=== PATIENT | female | born 1955 | race Caucasian/White ===

== ENCOUNTER 2016-08-03 13:20 | Inpatient (IN) | payer MEDICAID ==
--- NOTE | 2016-08-03 13:42 | CPEKG ---
Heart Rate: 72 RR Interval: 833 P-R Interval: 168 QRSD Interval: 86 QT Interval: 376 QTC Interval: 412 P [place]: 16 QRS [place]: 13 T Wave [place]: 32 EKG Severity - NORMAL ECG - EKG Impression: SINUS RHYTHM Electronically Signed By: Wilma Tilley 03-Aug-2016 15:22:39
[2016-08-03 13:57] LABS: % IMMATURE GRANULYOCYTES 0.4 % (0.0-1.1); ABSOLUTE IMMATURE GRANULOCYTES 0.05 10^3/uL (0.00-0.10); ADD DIFF? NO; ADD MORPH? NO; ADD SCAN? NO; ATYPICAL LYMPHOCYTE FLAG 0 (0-99); FRAGMENT RBC FLAG 0 (0-99); HEMATOCRIT 36.4 % (38.0-47.0); HEMOGLOBIN 11.7 g/dL (12.6-16.3); LEFT SHIFT FLG 0 (0-99); LIPEMIA HEMOLYSIS FLAG 80 (0-99); MEAN CELL HEMOGLOBIN CONCENTR. 32.1 g/dL (32.4-36.7); MEAN CELL VOLUME 74.7 fL (81.5-99.8); MEAN PLATELET VOLUME 8.8 fL (8.7-11.7); PLATELET CLUMPS FLAG 10 (0-99); PLATELET COUNT 284 10^3/uL (150-400); RED BLOOD CELL COUNT 4.87 10^6/uL (4.18-5.33); RED CELL DISTRIBUTION WIDTH 15.1 % (11.5-15.2)
--- NOTE | 2016-08-03 14:06 | EDPHY ---
H & P Time Seen by Provider: 08/03/16 13:32 HPI/ROS: CHIEF COMPLAINT: Possible aneurysm in lung HISTORY OF PRESENT ILLNESS: Patient is a 52-year-old female who presents to the emergency department complaining of left lateral rib pain. Patient has a recent history of colon cancer. She had a resection of the tumor on 2016. At that time they found that she also had cancer in her ovaries. She had a total abdominal hysterectomy and oophorectomy as well. Tumor has spread to her lymph nodes per report. Patient states since Thursday she developed left lateral rib pain. Extends under her armpit and breast. It does not radiate. It is improved when she stands. She denies shortness of breath. She has not felt as though she had a fever at home but does report having a fever here. She has had no cough. No nausea or vomiting. No abdominal pain. Her incisions from surgery healing well. No dysuria or frequency. Patient called her cancer physician knee told her to come to the emergency department for further evaluation of possible "aneurysm in lung." REVIEW OF SYSTEMS: My complete review of systems is negative except as mentioned in the HPI. Past Medical/Surgical History: Includes colon cancer, ovarian cancer, anxiety Past surgical history: Includes colon cancer resection, total abdominal hysterectomy, oophorectomy Social history: The patient does not smoke Smoking Status: Never smoked Physical Exam: Vitals noted. 30.3, 133/71, 82, 22, 94% on room air GENERAL: Well-appearing, in no acute distress, alert. HEENT: Eyes normal to inspection, normal pharynx, no signs of dehydration. NECK: No thyromegaly, no lymphadenopathy, supple. RESPIRATORY: Clear to auscultation bilaterally, no rales, rhonchi or wheezing. CVS: Regular rate and rhythm, no rubs, murmurs, or gallops. Chest: The patient has left lateral chest wall tenderness palpation under her left breast. This is over the ribs. There is no palpable mass. No rash or lesions. ABDOMEN: Soft, nontender, nondistended, no organomegaly. Patient has a large midline surgical incision that is healing well. No erythema. BACK: Normal to inspection, no CVA tenderness. SKIN: Normal color, no rash, warm, dry. No pallor. EXTREMITIES: No pedal edema, no calf tenderness, no Homans sign or cords, no joint swelling. NEURO/PSYCH: Alert and oriented x3, normal mood and affect, normal motor sensory exam. Constitutional: Initial Vital Signs Temperature (C) 38.3 C 08/03/16 13:24 Heart Rate 82 08/03/16 13:24 Respiratory Rate 22 H 08/03/16 13:24 Blood Pressure 133/71 H 08/03/16 13:24 O2 Sat (%) 94 08/03/16 13:24 Allergies/Adverse Reactions: magnesium citrate Allergy (Verified 08/03/16 13:22) Home Medications: Medication Instructions Recorded Aspirin 81mg (*) 08/03/16 Atenolol 08/03/16 Flexeril 08/03/16 Metoprolol Tartrate 08/03/16 Xanax 08/03/16 traMADol 08/03/16 traZODone 08/03/16 Medical Decision Making - Diagnostics EKG Interpretation: EKG shows normal sinus rhythm, normal rate, normal axis, normal intervals. There are no ST or T-wave abnormalities. EKG is normal as interpreted by me. ED Course/Re-evaluation: In the emergency department I discussed possible etiologies with the patient. I answered her questions. I discussion regarding her report of possible aneurysm in lung. I discussed that this could potentially have said "embolism of lung". She states that that is actually what the doctor said. Laboratory studies, EKG and CT angio chest were ordered. I discussed this with the patient answered her questions Differential Diagnosis: My differential includes but is not limited to PE, bronchitis, pneumonia, empyema, metastatic disease, zoster, musculoskeletal strain, diaphragmatic irritation - Data Points Laboratory Results: Laboratory Results 08/03/16 13:52 08/03/16 08/03/16 13:52 13:52 WBC 12.52 10^3/uL H 10^3/uL (3.80-9.50) RBC 4.87 10^6/uL 10^6/uL (4.18-5.33) Hgb 11.7 g/dL L g/dL (12.6-16.3) Hct 36.4 % L % (38.0-47.0) MCV 74.7 fL L fL (81.5-99.8) MCH 24.0 pg L pg (27.9-34.1) MCHC 32.1 g/dL L g/dL (32.4-36.7) RDW 15.1 % % (11.5-15.2) Plt Count 284 10^3/uL 10^3/uL (150-400) MPV 8.8 fL fL (8.7-11.7) Neut % (Auto) 78.6 % H % (39.3-74.2) Lymph % (Auto) 13.2 % L % (15.0-45.0) [place] % (Auto) 6.1 % % (4.5-13.0) Eos % (Auto) 1.4 % % (0.6-7.6) Baso % (Auto) 0.3 % % (0.3-1.7) Nucleat RBC Rel Count 0.0 % % (0.0-0.2) Absolute Neuts (auto) 9.84 10^3/uL H 10^3/uL (1.70-6.50) Absolute Lymphs (auto) 1.65 10^3/uL 10^3/uL (1.00-3.00) Absolute Monos (auto) 0.76 10^3/uL 10^3/uL (0.30-0.80) Absolute Eos (auto) 0.18 10^3/uL 10^3/uL (0.03-0.40) Absolute Basos (auto) 0.04 10^3/uL 10^3/uL (0.02-0.10) Absolute Nucleated RBC 0.00 10^3/uL 10^3/uL (0-0.01) Immature Gran % 0.4 % % (0.0-1.1) Immature Gran # 0.05 10^3/uL 10^3/uL (0.00-0.10) Sodium Pending Potassium Pending Chloride Pending Carbon Dioxide Pending Anion Gap Pending BUN Pending Creatinine Pending Estimated GFR Pending Glucose Pending Calcium Pending Departure - Departure Condition: Good Referrals: NONE *PRIMARY CARE P,. [Primary Care Provider] - As per Instructions
[2016-08-03] MEDS ORDERED: NS 500 ML IV ONE (14:08)
[2016-08-03 14:17] LABS: INR 1.15 (0.83-1.16); PROTIME(PATIENT) 14.6 SEC (12.0-15.0)
[2016-08-03 14:18] LABS: APTT 30.2 SEC (23.0-38.0)
[2016-08-03 14:23] LABS: ALANINE AMINOTRANSFERASE 23 IU/L (9-52); ALBUMIN 3.6 g/dL (3.5-5.0); ALKALINE PHOSPHATASE 82 IU/L (38-126); ANION GAP 11 mEq/L (8-16); ASPARTATE AMINOTRANSFERASE 12 IU/L (14-46); BILIRUBIN,TOTAL 0.7 mg/dL (0.1-1.4); BILIRUBIN-CONJUGATED 0.3 mg/dL (0.0-0.5); BILIRUBIN-UNCONJUGATED 0.4 mg/dL (0.0-1.1); CALCIUM 9.4 mg/dL (8.5-10.4); CARBON DIOXIDE 23 mEq/l (22-31); CHLORIDE 107 mEq/L (97-110); CREATININE 0.8 mg/dL (0.6-1.0); GLOMERULAR FILTRATION RATE > 60; GLUCOSE 123 mg/dL (70-100); POTASSIUM 4.3 mEq/L (3.5-5.2); SODIUM 141 mEq/L (134-144); TOTAL PROTEIN 6.3 g/dL (6.3-8.2)
[2016-08-03] MEDS ORDERED: IOPAMIDOL (ISOVUE 370) 100 ML BTL IV ONE (14:26)
[2016-08-03 14:35] LABS: TROPONIN I < 0.012 ng/mL (0-0.034)
[2016-08-03] MEDS ORDERED: ENOXAPARIN 100 MG/ML SYR SC ONE (15:10)
[2016-08-03] MEDS ORDERED: HYDROmorphONE/DILAUDID 1 MG/ML SYR IVP ONE (15:27)
[2016-08-03] MEDS ORDERED: HYDROmorphONE/DILAUDID 2 MG/ML INJ IVP ONE (15:43)
[2016-08-03] MEDS ORDERED: HYDROmorphONE/DILAUDID 1 MG/ML SYR ONE (15:44)
[2016-08-03] MEDS ORDERED: LORazepam 0.5 MG TAB PO PRN (15:59)
[2016-08-03] MEDS ORDERED: ONDANSETRON 4 MG/2 ML VIAL IVP PRN (15:59)
[2016-08-03] MEDS ORDERED: HYDROmorphONE/DILAUDID 1 MG/ML SYR IVP PRN (15:59)
[2016-08-03] MEDS ORDERED: traMADol 50 MG TAB PO PRN (16:31)
[2016-08-03] MEDS ORDERED: ONDANSETRON DISINTEGRATING 4 MG TAB PO PRN (16:45)
--- NOTE | 2016-08-03 16:57 | GHP ---
[f rep st] HISTORY AND PHYSICAL DATE OF ADMISSION: 08/03/2016 CHIEF COMPLAINT: Pleuritic chest pain. HISTORY: The patient is a 60-year-old female, recently diagnosed with colon cancer. She underwent resection at [facility] July 01. Cancer was extensive and involved her ovaries, so she also requi red a hysterectomy and oophorectomy. She had positive lymph nodes. She has been labeled stage IV. She has not yet initiated chemotherapy. She is still recovering from surgery. Her oncologist is Maynor Lowe. She presents to the emergency room now with severe pleuritic chest pain. This started 3 days ago, b ut, as of this morning, became very severe, 15/10 severity. She is clutching the left side of her c hest and in severe pain throughout history and physical. This pain is sharp with shortness of breat h. It is left lateral lower chest, pleuritic. It gets better when she stands up. The patient did not have a colonoscopy at age 52 because she was working a lot, and just did get talon und to it. PAST MEDICAL HISTORY: 1. Colon cancer, status post resection at [facility] July 01. 2. Atrial fibrillation postoperatively. 3. Benign pulmonary nodule, status post biopsy at [facility]. PAST SURGICAL HISTORY: Cholecystectomy. MEDICATIONS: Please see computerized record for full detailed list. ALLERGIES: Mag citrate. SOCIAL HISTORY: No smoking. She drank alcohol only in college. 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 She lives with her . REVIEW OF SYSTEMS: Complete review of system obtained. Review of system is negative regarding cons titutional, HEENT, GI, pulmonary, cardiovascular, , hematology, musculoskeletal, musculoskeletal, endocrine, psych, except for positives and negatives as in HPI. FAMILY HISTORY: Her father did have colon cancer, although at an older age. Aunt with breast cance r. PHYSICAL EXAMINATION: GENERAL: Well-developed, well-nourished female in no acute distress. VITAL SIGNS: Temperature 38.3, pulse 77, blood pressure 122/77, saturating 98% on room air. EYES: Jazzy l conjunctivae. Pupils round, react to light. ENT: Normal ears and nose. Hearing intact. Normal teeth. Oropharynx moist. NECK: Trachea midline. No thyromegaly. CHEST: Normal respiratory eff ort. Lungs clear to auscultation bilaterally. CARDIOVASCULAR SYSTEM: Regular rhythm. No murmur. No lower extremity edema. ABDOMEN: Soft, nontender. No hepatosplenomegaly. Her surgical incisio n looks well healed. SKIN: Warm, dry, intact. No rash. MUSCULOSKELETAL: No cyanosis or clubbing . Strength 5/5 upper and lower extremities. NEUROLOGIC: Cranial nerves intact. Normal sensation to light touch. PSYCHIATRIC: Alert and oriented x3. Normal affect. Normal judgment. Normal nahomi ry. She is little anxious. LABORATORY DATA: White count 12.52, hematocrit 36.4, platelets 284. Sodium 141, potassium 4.3, chl oride 107, bicarbonate 23, BUN 11, creatinine 0.8, glucose 123. LFTs are negative. Troponins negat david. D-dimer is 2.57. EKG reviewed by me, and my personal interpretation is normal sinus rhythm. No ST or T-wave changes. CT angio of the chest shows bilateral pulmonary embolus, left greater than right, a left upper lobe nodule, and bilateral thyroid nodules. ASSESSMENT AND PLAN: 1. Acute pulmonary embolus. She does have significant bilateral clot burden. She also has severe pleuritic chest pain. She may have an element of pulmonary infarct. We will continue subcutaneous Lovenox. We will discuss with Oncology their desired long-term anticoagulation strategy with her. IV Dilaudid for pain control. 2. Colon cancer, status post resection, locally advanced, stage IV. Chemotherapy pending. Oncolog y is notified of admission. 3. Atrial fibrillation. Clarify home med reconciliation. Continue her beta blockers. 4. Thyroid nodules. This should follow as an outpatient. 5. Fever. I suspect she has an element of pulmonary infarct causing the fever. We will check cult ures. CODE STATUS: Full. ADMISSION STATUS: 1. We will admit to inpatient, as her clot burden is extensive, and she is very symptomatic, so ant icipate greater than 2 midnights required for stabilization. 2. DVT prophylaxis. Full anticoagulation as discussed above. /[id number]/MODL
[2016-08-03] MEDS: HYDROmorphONE/DILAUDID 4 MG TAB PO PRN ×2 (17:06→21:30)
[2016-08-03 17:55] LABS: COLOR YELLOW; LEUKOCYTE ESTERASE,URINE NEGATIVE (NEGATIVE); NITRITE,URINE NEGATIVE (NEGATIVE)
[2016-08-03] MEDS: ATENOLOL 50 MG TAB PO SCH (21:29)
[2016-08-03] MEDS: METOPROLOL TARTRATE 25 MG TAB PO SCH (21:30)
[2016-08-03] MEDS: traZODone 100 MG TAB PO PRN (21:30)
[2016-08-03] MEDS: ALPRAZolam 1 MG TAB PO PRN (21:30)
[2016-08-03] MEDS: ENOXAPARIN 100 MG/ML SYR SC SCH (21:31)
[2016-08-03] MEDS: CYCLOBENZAPRINE 10 MG TAB PO PRN (21:31)
[2016-08-04] MEDS: HYDROmorphONE/DILAUDID 4 MG TAB PO PRN ×3 (03:31→12:38)
[2016-08-04 07:30] LABS: % IMMATURE GRANULYOCYTES 0.3 % (0.0-1.1); ABSOLUTE IMMATURE GRANULOCYTES 0.03 10^3/uL (0.00-0.10); ADD DIFF? NO; ADD MORPH? NO; ADD SCAN? NO; ATYPICAL LYMPHOCYTE FLAG 0 (0-99); FRAGMENT RBC FLAG 0 (0-99); HEMATOCRIT 33.9 % (38.0-47.0); HEMOGLOBIN 10.4 g/dL (12.6-16.3); LEFT SHIFT FLG 0 (0-99); LIPEMIA HEMOLYSIS FLAG 80 (0-99); MEAN CELL HEMOGLOBIN CONCENTR. 30.7 g/dL (32.4-36.7); MEAN CELL VOLUME 78.3 fL (81.5-99.8); PLATELET CLUMPS FLAG 20 (0-99); PLATELET COUNT 198 10^3/uL (150-400); RED BLOOD CELL COUNT 4.33 10^6/uL (4.18-5.33); RED CELL DISTRIBUTION WIDTH 15.2 % (11.5-15.2)
[2016-08-04] MEDS: METOPROLOL TARTRATE 25 MG TAB PO SCH ×2 (07:41→21:33)
[2016-08-04] MEDS: ENOXAPARIN 100 MG/ML SYR SC SCH ×2 (07:42→21:33)
[2016-08-04 07:47] LABS: ANION GAP 5 mEq/L (8-16); CALCIUM 8.6 mg/dL (8.5-10.4); CARBON DIOXIDE 27 mEq/l (22-31); CHLORIDE 103 mEq/L (97-110); CREATININE 0.7 mg/dL (0.6-1.0); GLOMERULAR FILTRATION RATE > 60; GLUCOSE 130 mg/dL (70-100); POTASSIUM 4.7 mEq/L (3.5-5.2); SODIUM 135 mEq/L (134-144)
[2016-08-04] MEDS ORDERED: ASPIRIN 81 MG CHEWABLE TAB PO SCH (09:00)
--- NOTE | 2016-08-04 09:39 | GCON ---
[f rep st] CONSULTATION ONCOLOGY CONSULTATION DATE OF CONSULTATION: 08/04/2016 REFERRING PHYSICIAN: Alisha Grewal MD REASON FOR CONSULTATION: Pulmonary embolism in the setting of colon cancer. HISTORY OF PRESENT ILLNESS: The patient is a 60-year-old woman with a recent diagnosis of metastati c rectosigmoid colon cancer. She is well known to me from my clinic. Briefly, she presented in lat e February 2016. A PET scan showed a number of FDG avid areas in the colon, including the mid trans verse colon and the sigmoid colon. There was also a left upper lobe lung nodule measuring 1.6 cm wh ich was hypermetabolic. A colonoscopy on May 28 revealed obstructing mass at the rectosigmoid junc tion at 14 cm. A biopsy showed an adenocarcinoma. She had a bronchoscopic biopsy of the lung lesio n which was normal. She underwent surgery on July 01. The cecum was resected based on the PET fin dings and had 4 adenomas measuring up to 2.5 cm but no cancer and no positive nodes. The sigmoid co ntained a 5.2 cm high-grade adenocarcinoma with 4 out of 19 nodes and an extramural tumor deposit. The ovaries appeared grossly abnormal and also were removed and these both contained metastatic canc er as well. I saw her last week in clinic when she was feeling tired due to iron deficiency anemia and her recen t surgery but otherwise well. Over the weekend she developed some severe left-sided pleuritic chest pain and came to the emergency department for medical attention. A CT angiogram revealed bilateral thromboembolic disease, greater on the left than the right. The previously noted FDG avid left upp er lobe lung nodule was stable in size. She was hemodynamically stable. She was started on Lovenox . She continues to have significant pain but notes that the Dilaudid is helping this. PAST MEDICAL HISTORY: 1. Hypertension. 2. Anxiety. CURRENT MEDICATIONS: Xanax, atenolol, Flexeril, Lovenox 100 mg subcutaneously b.i.d., Dilaudid p.o. and IV, Lopressor. ALLERGIES: She has no known drug allergies. FAMILY HISTORY: Noncontributory. SOCIAL HISTORY: She is nonsmoker, nondrinker. 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 She is mar ried. Lives with her . REVIEW OF SYSTEMS: Pertinent positives noted in the HPI. A 14-point review of systems is negative. EXAMINATION: VITAL SIGNS: Her temperature was 38.3, blood pressure 120/67, heart rate 76, oxygen s aturation 98% on 2 L. GENERAL: She was in no acute distress. Her sclerae were anicteric. Orophar ynx was clear. NECK: Supple without lymphadenopathy. LUNGS: Clear to auscultation bilaterally. CARDIAC: Regular rate and rhythm. No murmurs, gallops, rubs. ABDOMEN: Normoactive bowel sounds. Nontender. Nondistended. EXTREMITIES: No edema. 2+ pulses. NEUROLOGIC: She was alert and orien mitchell x3. LABORATORY DATA: White count 8.74, hemoglobin 10.4 with MCV of 78, platelets of 198. Chemistry mathis el was unremarkable. IMPRESSION: This is a 60-year-old woman with recently resected colon cancer with metastasis to the ovaries. She now presents with a pulmonary embolism. She almost certainly has at least microscopic residual cancer in the left upper lung nodule. This possibly metastasis, though it has not grown i n the past month or so. She is currently anticoagulated with Lovenox. I think Xarelto would be the easiest to manage in the outpatient setting and should be covered by Medicaid. Coumadin would also be a reasonable alternat david. She will need anticoagulation for at least 6 months, though if she has evidence of active canc er at that time it should be continued beyond that point. I will give her some intravenous iron for her iron deficiency which is planned for clinic this week. I have discussed with her the role of chemotherapy in trying to treat the cancer and possibly preven t the gross metastatic recurrence. She was initially quite resistant to the idea but is more amenab le to it right now. I would not plan to start for another few weeks so it is not an active issue in this particular hospitalization. I will continue to follow the patient with you closely while she is in the hospital. /[id number]/MODL
[2016-08-04] MEDS: SODIUM FERRIC GLUCONAT/SUCROSE 125 MG in NS 100 ML IV SCH (09:58)
--- NOTE | 2016-08-04 11:11 | HOSPPROG ---
Hospitalist Progress Note Assessment/Plan: 60 y/o female new to my care with history with stage IV colon cancer s/p resection presenting with #Acute PE -Cont LMWH as ordered -onc consult note reviewed -plan to transition to Xarelto if covered by medicaid #Low grade fever likely due to pulm infarction in the setting of PE -blood cultures pending -wbc normal -continue to monitor off of antibiotics #Afib (rate controlled) -cont home meds + anticoagulation as recently started #stable Thyroid nodules seen on CT -Will check a TSH and recommend outpatient followup and US #Iron Deficiency anemia -IV iron ordered by Hematology dispo: continue inpatient care Subjective: continues to have severe right sided pluritic chest pain. no shortness of breath. resolved fever. Denies obvious bleeding Objective: Vital Signs Temp Pulse Resp BP Pulse Ox 38.3 C 76 22 H 128/67 H 98 08/04/16 07:29 08/04/16 07:29 08/04/16 07:29 08/04/16 07:29 08/04/16 07:29 Laboratory Results 08/04/16 07:08 08/04/16 07:08 08/03/16 08/04/16 08/05/16 05:59 05:59 05:59 Intake Total 600 360 Output Total 200 Balance 400 360 PT 14.6 SEC (12.0-15.0) 08/03/16 13:52 INR 1.15 (0.83-1.16) 08/03/16 13:52 - Physical Exam Constitutional: no apparent distress, appears nourished, not in pain Cardiovascular: regular rate and rhythym, no murmur, rub, or gallop Respiratory: no respiratory distress, no rales or rhonchi, clear to auscultation Gastrointestinal: normoactive bowel sounds, soft, non-tender abdomen, no palpable masses, No guarding, No rebound Genitourinary: no bladder fullness, no bladder tenderness, no renal bruits Skin: no rashes or abrasions, no fluctuance, no induration Neurologic: AAOx3, CN II-XII Intact, No facial droop ICD10 Worksheet Patient Problems: Problems Problem Status Onset Pulmonary embolism Acute
[2016-08-04] MEDS: ACETAMINOPHEN 325 MG TAB PO PRN (15:34)
[2016-08-04] MEDS: traZODone 100 MG TAB PO PRN (21:32)
[2016-08-04] MEDS: ATENOLOL 50 MG TAB PO SCH (21:32)
[2016-08-04] MEDS: ALPRAZolam 1 MG TAB PO PRN (21:33)
[2016-08-04] MEDS: CYCLOBENZAPRINE 10 MG TAB PO PRN (21:33)
[2016-08-05 07:24] VITALS: BP 136/59; PULSE 79; RESP 16; O2SAT 93
[2016-08-05] MEDS: ACETAMINOPHEN 325 MG TAB PO PRN (07:25)
[2016-08-05] MEDS: ENOXAPARIN 100 MG/ML SYR SC SCH (07:30)
[2016-08-05] MEDS: METOPROLOL TARTRATE 25 MG TAB PO SCH (07:30)
[2016-08-05] MEDS: SODIUM FERRIC GLUCONAT/SUCROSE 125 MG in NS 100 ML IV SCH (07:31)
[2016-08-05 08:43] VITALS: TEMP 99.5
--- NOTE | 2016-08-05 09:09 | PDDCSUM ---
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
== END 2016-08-05 10:57 | disposition home or self-care (01) | DRG 176 ==
LOC: OBSVTOIN 15:57 → F2W 16:27
PROVIDERS: ADMIT Internal Medicine; ATTEND Internal Medicine
DX: I26.99 Other pulmonary embolism without acute cor pulmonale (principal); I48.91 Unspecified atrial fibrillation; I10 Essential (primary) hypertension; D50.9 Iron deficiency anemia, unspecified; C18.9 Malignant neoplasm of colon, unspecified; C79.60 Secondary malignant neoplasm of unspecified ovary; C77.9 Secondary and unspecified malignant neoplasm of lymph node, unspecified; R91.1 Solitary pulmonary nodule; Z98.890 Other specified postprocedural states
CPT/HCPCS: 96374; 97161-GP; J1170; J1650; J2916; Q9967

== ENCOUNTER 2016-09-18 11:00 | Day surgery (SDC) | payer MEDICAID ==
--- NOTE | 2016-09-18 08:39 | GHP ---
[f rep st] HISTORY AND PHYSICAL DATE OF ADMISSION: 09/18/2016 CHIEF COMPLAINT: Colon cancer. HISTORY OF PRESENT ILLNESS: The patient is a 60-year-old with sigmoid colon cancer who presents to discuss port placement. She underwent colon resection on July 01, 2016, and had metastatic disease to lymph nodes, left lung, and both ovaries. She developed a PE postoperatively and was started on Xarelto. She is discontinuing Xarelto and transferring to warfarin. She is planning to start chemotherapy next week. PAST MEDICAL HISTORY: Atrial fibrillation, hypertension, colon cancer, pulmonary embolism. PAST SURGICAL HISTORY: Breast biopsy, laparoscopic cholecystectomy. MEDICATIONS: Atenolol, metoprolol, Xanax, Xarelto (on hold). ALLERGIES: Ibuprofen, magnesium salicylate. FAMILY HISTORY: No pertinent for past medical history. SOCIAL HISTORY: No tobacco use. REVIEW OF SYSTEMS: Significant for recent weight loss, night sweats, atrial fibrillation, high blood pressure, heart burn, constipation, anxiety. Otherwise , 10-point review of systems negative. PHYSICAL EXAMINATION: GENERAL: Pleasant, well-nourished, well-groomed woman in no acute distress. HEENT: Normocephalic. No gross hearing deficits. Mucous membranes moist. Pupils equal and round. No scleral icterus. LUNGS: Clear to auscultation bilaterally. No increased work of breathing. CARDIAC: Irregular. No peripheral edema. SKIN: Warm and dry. MUSCULOSKELETAL: Normal gait. Normal nails. PSYCH: Mood and affect normal. NEURO: Grossly intact. IMPRESSION AND PLAN: 60-year-old with metastatic sigmoid colon cancer. We will place a port. The risks and benefits, including, but not limited to, stroke, heart attack, , blood clots, infection, bleeding, pneumothorax were discussed. If the port becomes infected it would need to be removed. She understands she is at high risk of bleeding due to transitioning to warfarin. She will be off Xarelto for 2 days prior to surgery. /[id number]/MODL MTDD
[~2016-09-18 11:00] MED LIST: BUPIVACAINE 0.5% 30 ML SDV ONE; ceFAZolin 2 GM/DEXTROSE 100 ML IV ONE
[2016-09-18] MEDS ORDERED: ceFAZolin 2 GM/DEXTROSE 100 ML IV ONE (11:48)
[2016-09-18] MEDS ORDERED: LR 1,000 ML IV ONE (11:50)
--- NOTE | 2016-09-18 11:56 | PDHPUP ---
History & Physical Update H&P update statement: This history and physical update is based on an assessment of the patient which was completed after admission or registration (within 24 hours), but prior to the surgery/procedure. H&P update: H&P reviewed & patient examined H&P changes: stopped xarelto 2 days ago
[2016-09-18] MEDS ORDERED: PROPOFOL/EMULSION 500 MG/50 ML BOTTLE IV ONE (13:06)
[2016-09-18] MEDS ORDERED: MIDAZOLAM 2 MG/2 ML VIAL ONE (13:07)
[2016-09-18] MEDS ORDERED: fentaNYL 100 MCG/2 ML INJ ONE (13:07)
[2016-09-18] MEDS ORDERED: KETAMINE 100 MG/10 ML SYR ONE (13:08)
[2016-09-18] MEDS ORDERED: ACETAMINOPHEN 500 MG TAB PO PRN (13:20)
[2016-09-18] MEDS ORDERED: PROMETHAZINE HCL 25 MG/ML INJ IVP PRN (13:20)
[2016-09-18] MEDS ORDERED: NALOXONE HCL 0.4 MG/ML INJ IVP PRN (13:20)
[2016-09-18] MEDS ORDERED: ONDANSETRON 4 MG/2 ML VIAL IVP PRN (13:20)
[2016-09-18] MEDS ORDERED: LR 500 ML IV PRN (13:20)
[2016-09-18] MEDS ORDERED: fentaNYL 100 MCG/2 ML INJ IVP PRN (13:20)
--- NOTE | 2016-09-18 13:20 | PDANEPAE ---
ANE History of Present Illness 60 year old female with colon cancer. She has well controlled blood pressure, took metoprolol this AM. She is obese, no AAKASH. 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 She is otherwise healthy. ANE Past Medical History - Cardiovascular History Hx Hypertension: Yes Hx Arrhythmias: Yes Hx Chest Pain: No Hx Coronary Artery / Peripheral Vascular Disease: No Hx CHF / Valvular Disease: No Hx Palpitations: No Cardiovascular History Comment: A fib- on Xarelto. - Pulmonary History Hx COPD: No Hx Asthma/Reactive Airway Disease: No Hx Recent Upper Respiratory Infection: No Hx Oxygen in Use at Home: No Hx Sleep Apnea: No Sleep Apnea Screening Result - Last Documented: Negative Pulmonary History Comment: PE bilat lungs 07-21-16 No SOB. "spasm of bronchial tubes" - uses 1/2 tsp Nyquil. 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 [place] . R breast lumpectomy 1996 ANE Review of Systems - Exercise capacity METS (RN): 4 METS ANE Patient History - Allergies Allergies/Adverse Reactions: magnesium citrate Allergy (Verified 09/17/16 17:08) Vomiting - Home Medications Home Medications: ALPRAZolam [Xanax 1 MG (*)] 1 - 2 mg PO HS PRN 08/03/16 [Last Taken 09/17/16 22: 00] Atenolol [Tenormin 50 mg (*)] 50 mg PO HS 08/03/16 [Last Taken 09/17/16 21:00] Cyclobenzaprine [Flexeril 10 MG (*)] 10 mg PO HS PRN 08/03/16 [Last Taken 22:00] Metoprolol Tartrate [Lopressor 25 mg (*)] 25 mg PO BID 08/03/16 [Last Taken 08:00] traZODone [traZODONE 100MG (*)] 100 - 200 mg PO HS PRN 08/03/16 [Last Taken 21:00] - NPO status NPO Since - Liquids (Date): 09/18/16 NPO Since - Liquids (Time): 08:00 NPO Since - Solids (Date): 09/17/16 NPO Since - Solids (Time): 17:00 - Smoking Hx Smoking Status: Never smoked ANE Labs/Vital Signs - Vital Signs Blood Pressure: 117/69 Heart Rate: 64 Respiratory Rate: 15 O2 Sat (%): 95 Height: 170.18 cm Weight: 97.522 kg ANE Physical Exam - Airway Neck exam: FROM Mallampati Score: Class 1 Mouth exam: normal dental/mouth exam - Pulmonary Pulmonary: no respiratory distress - Cardiovascular Cardiovascular: regular rate and rhythym - ASA Status ASA Status: II ANE Anesthesia Plan Anesthesia Plan: MAC Urgent/Emergent Case: Jazzy alvarez completed preop but documented later for safe timely pt care
[2016-09-18] MEDS ORDERED: PROPOFOL 200 MG/20 ML VIAL ONE (14:08)
--- NOTE | 2016-09-18 14:24 | POSTOPPROG ---
Post Op Note Date of Operation: 09/18/16 Surgeon: Tamar Hernandez Anesthesiologist: becky Anesthesia: IV Sedation Pre-op Diagnosis: colon cancer Post-op Diagnosis: colon cancer Indication: 60 yo with colon cancer Procedure: R US guided IJ port Findings: left side would not go down SVC. Inf/Abcess present in the surg proc area at time of surgery?: No EBL: Minimal Specimen(s): none
[2016-09-18 15:14] VITALS: PULSE 73; RESP 16; TEMP 98.1
[2016-09-18 15:37] VITALS: BP 121/70; O2SAT 92
--- NOTE | 2016-09-18 17:10 | GOP ---
[f rep st] OPERATIVE REPORT DATE OF OPERATION: 09/18/2016 SURGEON: Tamar Hernandez MD ANESTHESIA: Monitored anesthesia care with IV general. ANESTHESIOLOGIST: Cori Atkins MD PREOPERATIVE DIAGNOSIS: Metastatic colon cancer. POSTOPERATIVE DIAGNOSIS: Metastatic colon cancer. PROCEDURE PERFORMED: Right ultrasound-guided internal jugular port. FINDINGS: I initially tried a left sided approach and despite multiple attempts and a glidewire, I could not get the wire to drop down into the SVC. SPECIMENS: None. ESTIMATED BLOOD LOSS: 20 cc. INDICATIONS: The patient is a 60-year-old woman with colon cancer. She will require a port for chemotherapy. DESCRIPTION OF PROCEDURE: The patient was brought into the operating room, placed supine on the table, and IV sedation was performed. Her bilateral neck and chest were prepped and draped in the usual sterile fashion. I infiltrated all sites with 0.5% Marcaine prior to inserting the needle. I used ultrasound to access the internal jugular vein on the left side. I accessed this easily with a large-bore needle. I threaded the guidewire. There was some resistance on fluoroscopy. It was buckling back on the innominate. I attempted several maneuvers to drop this into the SVC. I re-accessed the vein and again had difficulty getting the wire to drop into the SVC. I re-accessed the left internal jugular vein for the 3rd time and I even used a Glidewire and could not get the Glidewire to drop down into the SVC. I then moved over to the right neck. I accessed the internal jugular vein on the first attempt. I used the wire and it readily went into the SVC and into the IVC. I removed the needle. A pocket was made on the right chest to accommodate the port. The port was tunneled up to the insertion site. The catheter was measured under fluoroscopy and cut to size. Using the Seldinger technique, I placed the dilator and sheath over the wire and I removed the wire and the dilator. I threaded the catheter through the sheath and peeled away the sheath. Placement was confirmed with fluoroscopy. The tip appeared to be at the SVC junction. The port withdrew blood easily and was flushed with heparin. The pocket was closed with 3-0 Vicryl followed by 4-0 Monocryl. Dermabond applied to the incisions. She was awakened in the operating room, transferred to PACU in stable condition. /[id number]/MODL MTDD
== END 2016-09-18 15:52 | disposition home or self-care (01) ==
LOC: FSGY 11:00
PROVIDERS: ATTEND Surgery
PROC: 05HM33Z Insertion of Infusion Device into Right Internal Jugular Vein, Percutaneous Approach (ICD-10-PCS; principal; 2016-09-18 13:00)
DX: C18.7 Malignant neoplasm of sigmoid colon (principal)
CPT/HCPCS: 36561; 71010; 76001; C1769; C1788; J0690; J1642; J2250; J2704; J3010

== ENCOUNTER → 2017-03-24 | Outpatient (CLI) | payer MEDICAID | LOC: FIMAGING 11:29 | PROVIDERS: ATTEND Physician Assistant | DX: J98.11 Atelectasis (principal) ==

== ENCOUNTER → 2017-08-31 | Outpatient (CLI) | payer MEDICAID | LOC: FIMAGING 09:52 | PROVIDERS: ATTEND Internal Medicine Hematology & Oncology | DX: E04.2 Nontoxic multinodular goiter (principal) ==

== ENCOUNTER → 2017-12-26 | Outpatient (CLI) | payer MEDICAID | LOC: FIMAGING 13:25 | PROVIDERS: ATTEND Internal Medicine Hematology & Oncology | DX: Z12.31 Encounter for screening mammogram for malignant neoplasm of breast (principal) ==

== ENCOUNTER 2018-07-16 12:14 | Day surgery (SDC) | payer MEDICAID ==
[2018-07-16] MEDS ORDERED: ceFAZolin 2 GM/DEXTROSE 100 ML IV ONE (12:52)
[2018-07-16] MEDS ORDERED: LR 1,000 ML IV ONE (12:52)
[2018-07-16] MEDS ORDERED: MIDAZOLAM 2 MG/2 ML VIAL IVP ONE ×2 (13:10→16:52)
--- NOTE | 2018-07-16 13:10 | PDANEPAE ---
ANE History of Present Illness 62 yo for port ANE Past Medical History - Cardiovascular History Hx Hypertension: Yes Hx Arrhythmias: Yes Hx Chest Pain: No Hx Coronary Artery / Peripheral Vascular Disease: No Hx CHF / Valvular Disease: No Hx Palpitations: No Cardiovascular History Comment: PERICARDIAL CYST - Pulmonary History Hx COPD: No Hx Asthma/Reactive Airway Disease: No Hx Recent Upper Respiratory Infection: No Hx Oxygen in Use at Home: No Hx Sleep Apnea: No Sleep Apnea Screening Result - Last Documented: Negative Pulmonary History Comment: PE bilat lungs 07-21-16 - Neurologic History Hx Cerebrovascular Accident: No Hx Seizures: No Hx Dementia: No - Endocrine History Hx Diabetes: No - Renal History Hx Renal Disorders: No - Liver History Hx Hepatic Disorders: No - Neurological & Psychiatric Hx Hx Neurological and Psychiatric Disorders: Yes Neurological / Psychiatric History Comment: anxiety - Cancer History Hx Cancer: Yes Cancer History Comment: colon-lymph nodes - Congenital Disorder History Hx Congenital Disorders: No - GI History Hx Gastrointestinal Disorders: Yes Gastrointestinal History Comment: colon CA TREATED WITH CHEMO WHICH ENDED APPROX 04/2017 NOW WITH RECURRENCE - Other Health History Other Health History: INTERMITTENT NECK LYMPH NODE SWELLING. BRUISES EASILY - Chronic Pain History Chronic Pain: Yes (LOWER ABD) - Surgical History Prior Surgeries: PORT PLACEMENT 08/2016. colon resection 07/01/16. TOTAL hysterectomy 07-01-16. Lap [place] . R breast lumpectomy 1996 ANE Review of Systems Review of Systems: - Exercise capacity METS (RN): 4 METS ANE Patient History - Allergies Allergies/Adverse Reactions: magnesium citrate Allergy (Verified 09/17/16 17:08) Vomiting - Home Medications Home medications: home medication list seen and reviewed Home Medications: ALPRAZolam [Xanax 1 MG (*)] 1 - 2 mg PO HS PRN 08/03/16 [Last Taken 09/17/16 22: 00] Atenolol [Tenormin 50 mg (*)] 50 mg PO BID 08/03/16 [Last Taken 09/17/16 21:00] Cyclobenzaprine [Flexeril 10 MG (*)] 10 mg PO HS PRN 08/03/16 [Last Taken 22:00] traZODone [traZODONE 100MG (*)] 100 - 200 mg PO HS PRN 08/03/16 [Last Taken 21:00] Herbals/Supplements -Info Only DAILY 07/15/18 [Last Taken 07/14/18 08:00] - NPO status NPO Status: no food or drink >8 hours - Smoking Hx Smoking Status: Never smoked ANE Labs/Vital Signs - Vital Signs Height: 5 ft 7 in Weight: 98.883 kg ANE Physical Exam - Airway Neck exam: FROM Mallampati Score: Class 2 Mouth exam: normal dental/mouth exam - Pulmonary Pulmonary: no respiratory distress - Cardiovascular Cardiovascular: regular rate and rhythym - ASA Status ASA Status: II ANE Anesthesia Plan Anesthesia Plan: MAC
[2018-07-16] MEDS ORDERED: BUPIVACAINE 0.5% 30 ML SDV ONE (13:43)
--- NOTE | 2018-07-16 13:57 | PDHPUP ---
History & Physical Update H&P update statement: This history and physical update is based on an assessment of the patient which was completed after admission or registration (within 24 hours), but prior to the surgery/procedure. H&P update: H&P reviewed & patient examined, changes noted H&P changes: Patient feeling much better - thinks she ate bad hamburger
--- NOTE | 2018-07-16 14:28 | SOAPPROG ---
JOSE CRUZ Progress Note Assessment/Plan: Assessment: Saw in pre-op - patient very upset about IV stick in Right Arm "I will never come back" Concerned that there is bleeding in her muscle and swelling Very painful Reports had to take out IV Concerned about rash on Left arm where tourniquet was placed I do not appreciate a major swelling of the arm 1) Ice for comfort 2) Ultrasound to rule out bleeding 3) Patient rep She did have a successful IV placed by Dr. Peraza Plan: 07/16/18 14:26 Objective: Vital Signs Temp Pulse Resp BP Pulse Ox 37.0 C 65 15 154/81 H 95 07/16/18 13:08 07/16/18 13:08 07/16/18 13:08 07/16/18 13:08 07/16/18 13:08 ICD10 Worksheet Patient Problems: Problems Problem Status Onset Pulmonary embolism Acute
[2018-07-16] MEDS ORDERED: fentaNYL 100 MCG/2 ML INJ ONE ×2 (14:35→16:12)
[2018-07-16] MEDS ORDERED: PROPOFOL/EMULSION 500 MG/50 ML BOTTLE IV ONE ×2 (14:35→16:02)
[2018-07-16] MEDS ORDERED: MIDAZOLAM 2 MG/2 ML VIAL ONE (14:53)
--- NOTE | 2018-07-16 16:47 | POSTOPPROG ---
Post Op Note Date of Operation: 07/16/18 Surgeon: Tamar Hernandez Anesthesiologist: bret Anesthesia: IV Sedation Pre-op Diagnosis: cancer Post-op Diagnosis: colon ca Indication: 62 yo with recurrent colon ca Procedure: attempt L IJ port, r IJ port Inf/Abcess present in the surg proc area at time of surgery?: No EBL: 100-500 Specimen(s): none
[2018-07-16] MEDS ORDERED: fentaNYL 100 MCG/2 ML INJ IVP PRN (16:49)
[2018-07-16] MEDS ORDERED: ACETAMINOPHEN 500 MG TAB PO PRN (16:49)
[2018-07-16] MEDS ORDERED: ONDANSETRON 4 MG/2 ML VIAL IVP PRN (16:49)
[2018-07-16] MEDS ORDERED: oxyCODONE IR 5 MG TAB PO PRN (16:49)
[2018-07-16] MEDS ORDERED: NALOXONE HCL 0.4 MG/ML INJ IVP PRN (16:49)
--- NOTE | 2018-07-16 17:14 | POSTANESTH ---
Post Anesthetic Evaluation Cardiovascular Status: Normal, Stable Respiratory Status: Normal, Stable Level of Consciousness/Mental Status: Can Participate in Eval Pain Control: Adequate, Prn Tx Ordered Nausea/Vomiting Control: Adequate, Prn Tx Ordered Complications Possibly Related to Anesthesia: None Noted
[2018-07-16 18:18] VITALS: BP 127/65
--- NOTE | 2018-07-19 11:20 | GOP ---
[f rep st] OPERATIVE REPORT DATE OF OPERATION: 07/16/2018 SURGEON: Tamar Hernandez MD ANESTHESIA: Monitored anesthesia care with IV sedation. ANESTHESIOLOGIST: Dr. Masoud Montero. PREOPERATIVE DIAGNOSIS: Recurrent colon cancer. POSTOPERATIVE DIAGNOSIS: Recurrent colon cancer. PROCEDURE PERFORMED: Attempt, left internal jugular PowerPort placement, and placement of right ultrasound-guided internal jugular PowerPort placement. FINDINGS: On the left side, while the Glidewire went into the IVC, I was unable to direct the catheter into the IVC. It kept crossing the innominate and going cephalad. On the right side, the catheter passed easily into the SVC/ RA junction SPECIMENS: None. ESTIMATED BLOOD LOSS: 200 cc. INDICATIONS: The patient is a 62-year-old woman who was diagnosed with stage IVB colon cancer in 2017. She underwent sigmoid colectomy and FOLFOX. Unfortunately, her CT scan showed recurrence. DESCRIPTION OF PROCEDURE: The patient was brought into the operating room, placed supine on the table, and monitored anesthesia care with IV sedation was performed. Her bilateral neck and chest were prepped and draped in the usual sterile fashion. I infiltrated the left side with 0.5% Marcaine prior to making incisions. I used the ultrasound and identified her left internal jugular vein which was fully compressible. I accessed it with dark return of blood flow. I threaded the guidewire and removed the needle. Placement was going across the innominate, but I could not get it to drop into the superior vena cava. I then placed an Angiocath over the wire to hold my place and then placed a Glidewire which went easily into the IVC. I created a pocket to accommodate the port in the left chest, tunneled this up to the insertion site. Under fluoroscopy, I measured the catheter and cut it to size. Using the dilator and sheath, I placed this over the wire. I removed the wire and the dilator. I threaded the catheter through the sheath. The catheter would not pass into the SVC. I had multiple attempts under live fluoro to get this to pass into the SVC/RA junction. I was not satisfied with the placement in the innominate, and so I decided to remove the port and the catheter and move over to the right side. I held pressure on the IJ. On the right side, I had infiltrated all sites with 0.5% Marcaine prior to making incisions. I identified the right internal jugular vein. It easily compressed. I accessed it with a large bore needle with dark return of blood flow. I placed the wire which passed easily into the IVC. I created a pocket to accommodate the port in the right chest, tunneled this up to the insertion site. I placed a dilator and sheath over the wire. I removed the wire and the dilator. Placement confirmed with fluoroscopy. I measured the catheter and cut it to size. After removing the wire and the dilator, I placed the catheter through the sheath and peeled away the sheath. Placement confirmed with fluoroscopy. The port withdrew blood easily and was flushed with heparin. I closed each pocket on the chest with 3-0 Vicryl, followed by 4- 0 Monocryl. I closed the incisions on the neck with 4-0 Monocryl. Dermabond applied. She was awakened in the operating room, transferred to PACU in stable condition. Chest x-ray showed the port in good position without evidence of pneumothorax. /[id number]/MODL MTDD
== END 2018-07-16 18:06 | disposition home or self-care (01) ==
LOC: FSGY 12:14
PROVIDERS: ATTEND Surgery
PROC: 02H633Z Insertion of Infusion Device into Right Atrium, Percutaneous Approach (ICD-10-PCS; principal; 2018-07-16 14:15)
PROC: 0JH63XZ Insertion of Tunneled Vascular Access Device into Chest Subcutaneous Tissue and Fascia, Percutaneous Approach (ICD-10-PCS; principal; 2018-07-16 14:15)
DX: C19 Malignant neoplasm of rectosigmoid junction (principal)
CPT/HCPCS: 36561; 71045; 76000; 93971; C1769; C1788; J0690; J1642; J2250; J2704; J3010